=== PATIENT | male | born 1985 | race Two or more races ===

== ENCOUNTER 2019-11-22 13:09 | Emergency (ER) | payer MEDICAID ==
[~2019-11-22] VITALS: Ht 172.7 cm; Wt 74.8 kg
--- NOTE | 2019-11-22 13:20 | NUR ---
[id number] and lapd, from a motel, overdose on unknown meds, found prednisone 20 mg next to patient, admits on taking meth, cocaine and marijuana. Patient a/ox3-4, verbally responsive, breathing even and unlabored, no sob noted. Attached to the cigarette lighter repairer. Kept comfortable.
--- NOTE | 2019-11-22 13:25 | NUR ---
sitter at bedside for safety.
[2019-11-22 13:41] LABS: BASOPHILS % (AUTO) 0.1 % (0.0-2.0); EOSINOPHILS % (AUTO) 4.4 % (0.0-6.0); HEMATOCRIT 29 % (39-51); HEMOGLOBIN 9.3 g/dL (13.5-17.5); LYMPHOCYTES # (AUTO) 0.3 /CMM (0.8-4.8); LYMPHOCYTES % (AUTO) 5.7 % (20.0-44.0); MEAN CORPUSCULAR HGB CONC 32 g/dl (31.0-36.0); MEAN CORPUSCULAR VOLUME 93 fL (80-96); MONOCYTES # (AUTO) 0.4 /CMM (0.1-1.30); MONOCYTES % (AUTO) 8.2 % (2.0-12.0); NEUTROPHILS # (AUTO) 3.9 /CMM (1.8-8.9); NEUTROPHILS % (AUTO) 81.6 % (43.0-81.0); PLATELET COUNT (AUTO) 218 /CMM (150-450); RED BLOOD CELL COUNT(AUTO) 3.14 MIL/uL (4.5-6.0); WHITE BLOOD COUNT (AUTO) 4.8 K/uL (4.3-11.0)
[2019-11-22 13:51] LABS: CALCIUM, SERUM 7.8 mg/dL (8.5-10.1); CARBON DIOXIDE 23 mmol/L (21-32); CHLORIDE 100 mmol/L (98-107); CREATININE 1.4 mg/dL (0.6-1.3); GLUCOSE 78 mg/dL (74-106); POTASSIUM 3.2 mmol/L (3.5-5.1); SODIUM SERUM 136 mmol/L (136-145); UREA NITROGEN, BLOOD 19 mg/dL (7-18)
[2019-11-22 14:04] LABS: ACETAMINOPHEN 0 ug/ml (10-30); ALANINE AMINOTRANSFERASE 325 U/L (12-78); ALBUMIN 3.2 g/dL (3.4-5.0); ALCOHOL, BLOOD < 3 mg/dL (0-0); ALKALINE PHOSPHATASE 58 U/L (46-116); ASPARTATE AMINOTRANSFERASE 170 U/L (15-37); BILIRUBIN,DIRECT 0.3 mg/dL (0.0-0.2); BILIRUBIN,TOTAL 0.6 mg/dL (0.2-1.0); SALICYLATE 0.7 mg/dL (2.8-20.0); TOTAL PROTEIN, SERUM 6.5 g/dL (6.4-8.2)
[2019-11-22] MEDS: QUETIAPINE FUMARATE 100 MG TABLET PO STA (15:31)
--- NOTE | 2019-11-22 16:27 | NUR ---
Patient is a 34-year-old male who was brought into [facility] ER by rescue ambulance and police. Patient was placed under a 5150 hold. Per police, patient was found in a motel bathroom hanging himself in the shower. Per report, patient was hearing voices that told him to kill himself. Patient was receptive to speaking with this delinquency prevention social worker. Patient confirmed demographics on face sheet including date of and social security number. Patient reports to live at [address] [place] [address] in [place] with a roommate, patient is not homeless as mentioned in 5150 hold report. During this SW assessment, patient stated he was hearing voices. Per patient, one of these voices is Nirmal. Per patient, Nirmal takes over his body and tells him to kill himself. Per patient, this happens when he is on multiple drugs. During this assessment, patient asked to be placed in restraints as he does not trust himself stating Nirmal is asking me to do things here and I do not feel comfortable with them. Per patient, he has used all the drugs. Anything that you put in front of me. Patient stated during this assessment Is there a way I can have physician assisted suicide? Nirmal keeps telling me to kill myself and I want to make it stop. This SW asked the patient how long he has heard voices and per patient always, mostly on multiple drugs. Per MD report, patient stated he was trying to overdose on meth and was found with prednisone. Patient is agreeable to voluntary treatment at [facility] stating, If they can help me then Ill go anywhere. I want to get Nirmal away from me. This SW to discuss medication options with Dr. Thomas. Patient although alert and oriented, not able to focus on this SW assessment due to multiple stimuli.
--- NOTE | 2019-11-22 16:27 | NUR ---
This SW spoke with Dr. Thomas regarding medication options for the patient. Per Dr. Thomas, patient will receive a dosage of Seroquel. Per Dr. Thomas, patient will be observed per ER staff and Social Work Nurse to be called for evaluation. Plan: ER Staff to call Social Work Nurse after observation period for Social Work Nurse to clear 5150 hold. Patient agreeable for voluntary psychiatric treatment at [facility].
[2019-11-22 18:21] VITALS: BP 103/58
--- NOTE | 2019-11-22 18:33 | NUR ---
URINE SENT TO LAB.
[2019-11-22 18:56] LABS: APPEARANCE,URINE Clear (CLEAR); BILIRUBIN,URINE SMALL (NEGATIVE); BLOOD, URINE Negative Ery/uL (NEGATIVE); COLOR,URINE Yellow (YELLOW); KETONES,URINE 15 (NEGATIVE); LEUKOCYTE ESTERASE ,URINE Negative (NEGATIVE); NITRITE, URINE Negative (NEGATIVE); PROTEIN,URINE Negative (NEGATIVE); UGLUCOSE Negative (NEGATIVE)
[2019-11-22 19:12] LABS: BACTERIA,URINE Rare /HPF (None Seen); RBC,URINE NONE SEEN /HPF (0-2); SQUAMOUS EPITHELIAL CELL,UR Few /HPF (None Seen); WBC,URINE NONE SEEN /HPF (0-3)
--- NOTE | 2019-11-22 19:42 | NUR ---
CALLED [facility] ETA 1 HOUR
--- NOTE | 2019-11-22 21:25 | NUR ---
CALL FROM [facility] INTAKE. PT ACCEPTED TO [facility] BY DR TOLENTINO. # FOR REPORT [phone]
--- NOTE | 2019-11-22 21:43 | NUR ---
[facility] CALLED FOR S TRANSPORT, ETA 2230.
--- NOTE | 2019-11-22 22:39 | NUR ---
REPORT GIVEN TO TIGRE LIND FOR CONTINUATION OF CARE.
[2019-11-22] MEDS: POTASSIUM CHLORIDE 20 MEQ TAB.PRT.SR PO ONE (22:42)
[2019-11-22] MEDS ORDERED: POTASSIUM CHLORIDE 20 MEQ TAB.PRT.SR PO ONE (22:42)
--- NOTE | 2019-11-22 22:45 | NUR ---
[facility] AT BEDSIDE FOR TRANSPORT TO [facility]
== END 2019-11-22 22:52 ==
LOC: ER 13:15
DX: T14.91XA Suicide attempt, initial encounter (principal); F28 Other psychotic disorder not due to a substance or known physiological condition; X83.8XXA Intentional self-harm by other specified means, initial encounter; Y93.89 Activity, other specified; Y92.89 Other specified places as the place of occurrence of the external cause; Y99.8 Other external cause status
CPT/HCPCS: 36415; 76705; 80048; 80076; 80305; 80307; 80329; 81001; 85025; 99285; G0480; 81000-TC